=== PATIENT | female | born 1995 | race Caucasian/White ===

== ENCOUNTER 2022-01-03 08:17 | Outpatient (CLI) | payer BC, SELFPAY ==
[2022-01-03 09:01] LABS: Cholesterol 156 mg/dL (0-200); HDL Direct 57 mg/dL; Triglycerides 57 mg/dL (<150)
[2022-01-03 09:12] LABS: LDL Cholesterol Direct 70 mg/dL
[2022-01-03 11:08] LABS: Hemoglobin A1C 5.3 % (<5.7)
[2022-01-06 11:57] LABS: DHEA-Sulfate 154 mcg/dL (18-391)
[2022-01-09 08:56] LABS: Testosterone Free 12.8 pg/mL (0.1-6.4); Testosterone Total 105 ng/dL (2-45)
[2022-01-09 20:35] LABS: FSH 7.3 mIU/mL (***); Prolactin 16.2 ng/mL (***)
[2022-01-09 22:22] LABS: Estradiol, Ultrasensitive 49 pg/mL
[2022-01-11 07:09] LABS: Progesterone 0.3 ng/mL (***)
== END 2022-01-03 08:18 | disposition home or self-care (01) ==
LOC: ANHLAB 08:20
PROVIDERS: Visit Provider Obstetrics & Gynecology
DX: N92.6 Irregular menstruation, unspecified (principal)
CPT/HCPCS: 36415; 80061; 82627; 82670; 83001; 83036; 83498; 84144; 84146; 84402; 84403

== ENCOUNTER 2023-02-20 07:14 | Outpatient (CLI) | payer BC, SELFPAY ==
[2023-02-20 08:56] LABS: Cholesterol 164 mg/dL (0-200); HDL Direct 62 mg/dL; Triglycerides 76 mg/dL (<150)
[2023-02-20 08:59] LABS: Hemoglobin A1C 5.2 % (<5.7)
[2023-02-20 09:07] LABS: LDL Cholesterol Direct 73 mg/dL
[2023-02-23 15:56] LABS: Testosterone Total 96 ng/dL (2-45)
[2023-02-25 22:11] LABS: Free Insulin 13.7 uIU/mL (1.5-14.9)
== END 2023-02-20 07:15 | disposition home or self-care (01) ==
PROVIDERS: PCP Nurse Practitioner Adult Health; Visit Provider Obstetrics & Gynecology
DX: E28.2 Polycystic ovarian syndrome (principal)
CPT/HCPCS: 36415; 80061; 83036; 83527; 84403

== ENCOUNTER 2024-12-12 15:48 | Outpatient (CLI) | payer OTHER, SELFPAY ==
--- OUTSIDE RECORDS SUMMARY | 2024-12-12 15:50 | XMS_ITS | Clinical Summary ---
Author Organization [facility] [place] Address [address] [place] [address] Phone Care Team Providers Care Mining Manager Name Role Phone Provider, None Primary Care Provider Unavailabl e Allergies No known active allergies Medications sertraline (ZOLOFT) 25 MG Tablet 1 Active hydrOXYzine (ATARAX) 25 MG Tablet Take 25-50 mg by mouth. 1 Active albuterol (ProAir HFA) 108 (90 Base) MCG/ACT Aerosol SolutionIndicat ions:Viral URI with cough take 2 Puffs by inhalation every 4 hours as needed for Wheezing or Cough. 18 g 2 Active Additional Information Patient not taking.Reported on 01/26/2023 methylPREDNISol one (Medrol) 4 MG Tablet Therapy PackIndications :Contact dermatitis due to plants, except food, unspecified contact dermatitis type Use as per instructions on package. 21 Tablet 2 Active Additional Information Patient not taking.Reported on 04/10/2022 fluticasone (FLONASE) 50 MCG/ACT SuspensionIndic ations:Viral URI 2 Sprays by Nasal route daily. Use in each nostril as directed. 18.2 mL 2 Active Additional Information Patient not taking.Reported on 10/21/2023 Macie Fe 1.5/30 1.5-30 MG-MCG Tablet Take 1 Tablet by mouth daily. 4 Active spironolactone (ALDACTONE) 50 MG Tablet 4 Active methylPREDNISol one (Medrol) 4 MG Tablet Therapy PackIndications :Irritant contact dermatitis due to plants, except food Use as per instructions on package. 21 Tablet 4 Active Additional Information Patient not taking.Reported on 03/19/2024 methylPREDNISol one (Medrol) 4 MG Tablet Therapy PackIndications :Strain of lumbar region, initial encounter Use as per instructions on package. 21 Tablet 4 Active Additional Information Patient not taking.Reported on 03/19/2024 Active Problems No known active problems Immunizations Immunization Administration Dates Next Due Hpv, Unspecified Formulation 04/20/2007 Influenza Vaccine,unspecified Formulation 2021,02/20/2020 Social History Tobacco Use Types Packs/Day Years Used Date Smoking Tobacco: Never Smokeless Tobacco: Never Tobacco Cessation:Counseling Given: Not Answered Alcohol Use Standard Drinks/Week Comments Not Currently 0 (1 standard drink = 0.6 oz pur e alcohol) socially Comments No Sex and Gender Information Value Date Recorded Sex Assigned at Not on file Legal Sex Female 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 SORTER Gender Identity Not on file Sexual Orientation Not on file Last Filed Vital Signs Vital Sign Reading Time Taken Comments Blood Pressure 116/76 03/19/2024 8:44 AM PEANUT SORTER Pulse 107 03/19/2024 8:44 AM PEANUT SORTER Temperature 36.3 C (97.3 F) 03/19/2024 8:44 AM PEANUT SORTER Respiratory Rate 14 03/19/2024 8:44 AM PEANUT SORTER Oxygen Saturation 98% 03/19/2024 8:44 AM PEANUT SORTER Inhaled Oxygen Concentration - - Weight 88.5 kg (195 lb) 08/13/2023 6:09 PM CDT Height 165.1 cm (5' 5) 12/04/2021 5:21 PM CDT Body Mass Index 32.45 12/04/2021 5:21 PM CDT Plan of Treatment Health Maintenance Due Date Last Done Comments Hepatitis C Virus (HCV) Screening 1995 TdaP Immunization 1995 Human Papillomavirus (HPV) Immunization (2 - 2-dose series) 10/19/2007 04/20/2007 Hepatitis B Immunization (1 of 3 - 19+ 3-dose series) 2014 Pap Smear 2016 SARS-COV-2 Immunization (2 - season) 2023 03/29/2021 Influenza Immunization (#1) 12/19/202411/18, 02/20/2020 Respiratory Syncytial Virus (RSV) Immunization (Adult) (1 - 1-dose 75+ series) 2070 Meningococcal Immunization (ACWY) Aged Out No longer eligible b ased on patient's age to complete this topic Pneumococcal Immunization Combined Aged Out No longer eligible b ased on patient's age to complete this topic Rotavirus Immunization Aged Out No lo nger eligible based on patient's age to complete this topic Insurance [facility] Care Teams Mining Manager Relationship Specialty Start Date End Date Provider, None [place] PCP - General 05/20/21
[2024-12-12 20:01] LABS: Thyroid Stimulating Hormone 5.480 uIU/mL (0.465-4.680)
[2024-12-12 20:20] LABS: Vitamin B12 354.0 pg/mL (239-931)
[2024-12-12 21:08] LABS: Free T4 Free Thyroxine 0.93 ng/dL (0.78-2.19)
== END 2024-12-12 15:49 | disposition home or self-care (01) ==
LOC: ANHBWCLAB 15:48
PROVIDERS: PCP Nurse Practitioner Adult Health; Visit Provider Nurse Practitioner Adult Health
DX: R68.89 Other general symptoms and signs (principal); E53.8 Deficiency of other specified B group vitamins
CPT/HCPCS: 36415; 82607; 84439; 84443; 86376

== ENCOUNTER 2024-12-16 10:56 | Outpatient (CLI) | payer OTHER, SELFPAY ==
--- NOTE | ~2024-12-16 | US_ITS ---
EXAMINATION: US thyroid DATE: 12/16/2024 11:11 INDICATION: Abnormal labs TECHNIQUE: Multiple ultrasound images of the thyroid were obtained. COMPARISON: None. FINDINGS: The right thyroid lobe measures 5.2 x 1.2 x 1.4 cm. The left thyroid lobe measures 5.4 x 2.0 x 1.4 cm. Thyroid isthmus measures 3 mm in thickness. No discrete nodules identified. There is heterogeneous decreased echogenicity throughout the thyroid with pseudo nodular pattern without discrete nodules. IMPRESSION: 1. 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 Reviewed, dictated and finalized at location A. IMPRESSION: 1. Heterogeneous thyroid with pseudo nodular pattern without discrete thyroid n odule which is suggestive of Thierry's/lymphocytic thyroiditis.
== END 2024-12-16 10:57 | disposition home or self-care (01) ==
LOC: GOSHIMG 10:56
PROVIDERS: PCP Nurse Practitioner Adult Health; Visit Provider Nurse Practitioner Adult Health
DX: R79.89 Other specified abnormal findings of blood chemistry (principal)
CPT/HCPCS: 76536

== ENCOUNTER 2025-02-06 15:41 | Outpatient (CLI) | payer OTHER, SELFPAY ==
--- OUTSIDE RECORDS SUMMARY | 2025-02-06 18:18 | XMS_ITS | Clinical Summary ---
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 Gender Identity Not on file Sexual Orientation Not on file Last Filed Vital Signs Vital Sign Reading Time Taken Comments Blood Pressure 116/76 03/19/2024 8:44 AM PAINTLESS DENT REPAIR TECHNICIAN Pulse 107 03/19/2024 8:44 AM PAINTLESS DENT REPAIR TECHNICIAN Temperature 36.3 C (97.3 F) 03/19/2024 8:44 AM PAINTLESS DENT REPAIR TECHNICIAN Respiratory Rate 14 03/19/2024 8:44 AM PAINTLESS DENT REPAIR TECHNICIAN Oxygen Saturation 98% 03/19/2024 8:44 AM PAINTLESS DENT REPAIR TECHNICIAN Inhaled Oxygen Concentration - - Weight 88.5 [...] 19+ 3-dose series) 2014 Pap Smear 2016 Influenza Immunization (#1) 12/19/202411/18, 02/20/2020 SARS-COV-2 Immunization ( season) 2024 03/29/2021 Respiratory Syncytial Virus (RSV) Immunization (Adult) (1 - 1-dose 75+ series) 2070 Meningococcal Immunization (ACWY) Aged Out No longer eligible b ased on patient's age to complete this topic Pneumococcal Immunization Combined Aged Out No longer eligible b ased on patient's age to complete this topic Rotavirus Immunization Aged Out No lo nger eligible based on patient's age to complete this topic Insurance [facility] Care Teams Dermatologist And Dermatopathologist Relationship Specialty Start Date End Date Provider, None [place] PCP - General 05/20/21
[2025-02-06 20:00] LABS: Thyroid Stimulating Hormone 3.080 uIU/mL (0.465-4.680)
== END 2025-02-06 15:42 | disposition home or self-care (01) ==
LOC: ANHBWCLAB 15:41
PROVIDERS: PCP Nurse Practitioner Adult Health; Visit Provider Nurse Practitioner Adult Health
DX: E03.9 Hypothyroidism, unspecified (principal)
CPT/HCPCS: 36415; 84443

== ENCOUNTER 2025-03-27 15:34 | Outpatient (CLI) | payer OTHER, SELFPAY ==
--- OUTSIDE RECORDS SUMMARY | 2025-03-27 18:54 | XMS_ITS | Clinical Summary ---
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 Gender Identity Not on file Sexual Orientation Not on file Last Filed Vital Signs Vital Sign Reading Time Taken Comments Blood Pressure 116/76 03/19/2024 8:44 AM WATER PROOFER Pulse 107 03/19/2024 8:44 AM WATER PROOFER Temperature 36.3 C (97.3 F) 03/19/2024 8:44 AM WATER PROOFER Respiratory Rate 14 03/19/2024 8:44 AM WATER PROOFER Oxygen Saturation 98% 03/19/2024 8:44 AM WATER PROOFER Inhaled Oxygen Concentration - - Weight 88.5 kg (195 lb) 08/13/2023 6:09 PM CDT Height 165.1 cm (5' 5) 12/04/2021 5:21 PM CDT Body Mass Index 32.45 12/04/2021 5:21 PM CDT Plan of Treatment Health Maintenance Due Date Last Done Comments Hepatitis C Virus (HCV) Screening 1995 TdaP Immunization 1995 Human Papillomavirus (HPV) Immunization (2 - 2-dose series) 10/19/2007 04/20/2007 Varicella Immunization (1 of 2 - 13+ 2-dose series) 2008 Hepatitis B Immunization (1 of 3 - 19+ 3-dose series) 2014 Pap Smear 2016 Influenza Immunization (#1) 12/19/202411/18, 02/20/2020 SARS-COV-2 Immunization (2 - 2024- season) 2024 03/29/2021 Respiratory Syncytial Virus (RSV) [...] patient's age to complete this topic Insurance [facility] Care Teams Coater Operator Insulation Board Relationship Specialty Start Date End Date Provider, None [place] PCP - General 05/20/21
[2025-03-27 20:17] LABS: Thyroid Stimulating Hormone 1.520 uIU/mL (0.465-4.680)
== END 2025-03-27 15:35 | disposition home or self-care (01) ==
LOC: ANHBWCLAB 15:34
PROVIDERS: PCP Nurse Practitioner Adult Health; Visit Provider Nurse Practitioner Adult Health
DX: E03.9 Hypothyroidism, unspecified (principal)
CPT/HCPCS: 36415; 84443